=== PATIENT | male | born 1975 | race Caucasian/White ===

== ENCOUNTER 2019-03-23 13:47 | Emergency (ER) | payer OTHER ==
[~2019-03-23] VITALS: Ht 182.9 cm; Wt 53.5 kg
[2019-03-23] MEDS ORDERED: KETOROLAC TROMETHAMINE 60 MG INJ IM ONE ×2 (14:45→14:46)
--- NOTE | 2019-03-23 14:49 | NUR ---
PT WAS EVALUATED BY DR GALAVIZ. PT WAS D/C'd TO HOME. D/C INSTRUCTIONS GIVEN TO THE PT.
[2019-03-23 14:51] VITALS: BP 139/68
== END 2019-03-23 14:52 | disposition home or self-care (01) ==
LOC: ER 13:47
DX: M54.5 Low back pain (principal); Z88.1 Allergy status to other antibiotic agents; Z88.5 Allergy status to narcotic agent; Z91.030 Bee allergy status
CPT/HCPCS: 96372; 99283; J1885; A4663